=== PATIENT | female | born 1970 | race Caucasian/White ===

== ENCOUNTER 2016-10-22 13:46 | Day surgery (SDC) | payer OTHER ==
[~2016-10-22] VITALS: Ht 157.5 cm; Wt 81.8 kg
[2016-10-22 14:33] VITALS: Ht 157.5 cm; Wt 81.8 kg
[2016-10-22] MEDS ORDERED: FER325 PO (14:47)
[2016-10-22] MEDS ORDERED: ERGO500037 PO (14:47)
[2016-10-22] MEDS ORDERED: SITA100T8 PO (14:47)
[2016-10-22] MEDS ORDERED: ATOR20TA38 PO (14:47)
[2016-10-22] MEDS ORDERED: DILT180T7 PO (14:47)
[2016-10-22] MEDS ORDERED: PRED5 PO (14:47)
[2016-10-22] MEDS ORDERED: LISI10TA2 PO (14:47)
[2016-10-22] MEDS ORDERED: NITR50CA38 PO (14:47)
[2016-10-22] MEDS ORDERED: HYDR-3498 PO (14:47)
[2016-10-22] MEDS ORDERED: GLIP5TAB13 PO (14:47)
[2016-10-22] MEDS ORDERED: OMEP20CA16 PO (14:47)
[2016-10-22] MEDS ORDERED: MAGN400T28 PO (14:47)
[2016-10-22 15:12] VITALS: BP 125/73; PULSE 88; RESP 20
[2016-10-22] MEDS ORDERED: LIDOCAINE 4% SOLUTION 50 ML BTL ONE (15:34)
[2016-10-22] MEDS ORDERED: FENTAnyl 50 MCG/ML VIAL ONE (16:26)
[2016-10-22] MEDS ORDERED: MIDAZOLAM 1 MG/ML 2 ML INJ ONE ×3 (16:26)
--- NOTE | 2016-10-22 16:32 | OPPN ---
Date/Time of Note Date/Time of Note DATE: 10/22/16 TIME: 16:30 Proc Note GI Procedure date: Oct 22, 2016 Pre-procedure Diagnosis abd pain diarrhea r/o pud colitis Post-procedure Diagnosis normal ugi tract polyp in desg colon hemorrhoids Operation Performed egd colonoscopy Surgeon: NISREEN PATHAK MD Anesthesia Type: moderate sedation Estimated blood loss: none Transfusion Required: no Specimens stomach bx colon polyp bx Complications: no Complications none Indications r/o pud colitis Operative\Procedure Findings egd colonoscopy NISREEN PATHAK MD Oct 22, 2016 16:32
[2016-10-22 16:59] VITALS: BP 124/70; PULSE 87; RESP 22
--- NOTE | 2016-10-30 11:16 | GILP ---
DATE OF PROCEDURE: 10/22/2016 PROCEDURE PERFORMED: Colonoscopy. PREOPERATIVE DIAGNOSIS: The patient is presenting with history of occult gastrointestinal bleeding, rule out colorectal neoplasm. POSTOPERATIVE DIAGNOSES: 1. A 6-7 mm polyp was noted in the mid descending colon which was removed with the help of the cold biopsy forceps. 2. Hemorrhoids. DESCRIPTION OF PROCEDURE: After the informed written consent was obtained, the patient was asked to lie on the left lateral side. Intravenous anesthesia was given, which included Versed and fentanyl. When the patient became somnolent, Olympus video colonoscope was introduced into the rectum and scope was advanced all the way to the cecum. A 5-7 mm flat polyp was noted in the mid descending colon at about 30 cm from the anus. This was removed with the help of the cold biopsy forceps. This was not bleeding. This does not appear to be malignant. The scope at this time was advanced all the way to the cecum. Entire colon appeared normal. On the way out, no additional abnormalities detected except minimal internal and minimal external hemorrhoids. The scope at this time was withdrawn and the procedure was terminated. PLAN: Recommend wait for the pathology report. Dictated By: Paolo Lopez MD /[email or web address] /Document#: [id number]
--- NOTE | 2016-10-30 11:16 | GILP ---
DATE OF PROCEDURE: 10/22/2016 PROCEDURE PERFORMED: Esophagogastroduodenoscopy and colonoscopy. PREOPERATIVE DIAGNOSIS: Occult gastrointestinal bleeding, rule out peptic ulcer disease. POSTOPERATIVE DIAGNOSIS: Normal esophagus, stomach and duodenum. DESCRIPTION OF PROCEDURE: After informed written consent was obtained, the patient was asked to lie on the left lateral side. Intravenous anesthesia was given, which included Versed and fentanyl. When the patient became somnolent, Olympus video upper endoscope was introduced into the oropharynx and then into the esophagus. Esophagus showed normal mucosal pattern. The scope at this time was advanced into the stomach and the stomach, including the fundus, appeared normal with no gastritis, no ulcers, no neoplasm. Scope at this time was advanced into the duodenum. Mucosa of the duodenum appeared normal up and into the 3rd portion. The scope at this time was withdrawn. No additional abnormalities detected and the procedure was terminated. PLAN: Recommend colonoscopy. Dictated By: Paolo Lopez MD /[email or web address] /Document#: [id number]
== END 2016-10-22 17:16 | disposition home or self-care (01) ==
LOC: GIL 13:46
PROVIDERS: ATTEND Internal Medicine Gastroenterology
DX: K64.9 Unspecified hemorrhoids (principal); K29.50 Unspecified chronic gastritis without bleeding; K63.5 Polyp of colon; I10 Essential (primary) hypertension; E11.9 Type 2 diabetes mellitus without complications
CPT/HCPCS: 43239; 45380; 82962; 84703; 88305; 88312; J2250; J3010; Z7610